=== PATIENT | female | born 1965 | race Caucasian/White ===

== ENCOUNTER 2018-09-18 10:34 | Emergency (ER) | payer BC ==
[~2018-09-18] VITALS: Ht 152.4 cm; Wt 58.7 kg
[~2018-09-18 10:34] MED LIST: GLYB5TAB3 PO; METF-849 PO; PIOG15TA12 PO
[2018-09-18 10:39] VITALS: BP 150/83; PULSE 83; RESP 17; Ht 152.4 cm; Wt 58.7 kg
--- NOTE | 2018-09-18 11:16 | ERD ---
ER Documentation Chief Complaint Chief Complaint bit by "something" on R. ankle x 2 months ago HPI 53-year-old female presents for a wound check for a healing wound on her right ankle that she has had for about 2 months. She thinks at that time she may have been bit by something. She is been putting triamcinolone cream and mupirocin without any relief. No fever. No bleeding or drainage from the site. ROS All systems reviewed and are negative except as per history of present illness. Medications Home Meds Reported Medications Pioglitazone Hcl* (Actos*) 15 Mg Tablet, 15 MG PO DAILY 09/22/11 Glyburide* (Glyburide*) 5 Mg Tablet, 5 MG PO DAILY 09/22/11 Metformin* (Glucophage*) 500 Mg Tab, 500 MG PO BID 09/22/11 Allergies Allergies: Coded Allergies: No Known Allergy (Unverified , 09/22/11) PMhx/Soc History of Surgery: Yes (CSECTION) Anesthesia Reaction: No Hx Neurological Disorder: No Hx Respiratory Disorders: No Hx Cardiac Disorders: No Hx Psychiatric Problems: No Hx Miscellaneous Medical Probl: No Hx Alcohol Use: No Hx Substance Use: No Hx Tobacco Use: No FmHx Family History: No diabetes Physical Exam Vitals Vital Signs Date Temp Pulse Resp B/P (MAP) Pulse Ox O2 O2 Flow FiO2 Time Delivery Rate 09/18/18 98.2 83 17 150/83 99 10:39 (105) Physical Exam Const: No acute distress Head: Atraumatic Eyes: Normal Conjunctiva ENT: Normal External Ears, Nose and Mouth. Neck: Full range of motion. No meningismus. Resp: Clear to auscultation bilaterally Cardio: Regular rate and rhythm, no murmurs Skin: Right ankle has small healing wound about 1 cm diameter, no surrounding erythema or edema, no bleeding or drainage Procedures/MDM Patient has small wound that is healing appropriately. No evidence of infection. She can continue to put the mupirocin and triamcinolone as needed. Patient counseled regarding my diagnostic impression and care plan. Prior to discharge all questions answered. Pt agrees with treatment plan and understands strict return precautions. Pt is instructed to follow up with primary care provider within 24-48 hours. Precautionary instructions provided including instructions to return to the ER if not improving or for any worsening or changing symptoms or concerns. Departure Diagnosis: Primary Impression: Visit for wound check Condition: Stable Patient Instructions: Wound Care Additional Instructions: Llame al doctor MAANA y mary kyra AMISHA PARA DENTRO DE 1-2 GARCAI.Dgale a la secretaria que nosotros le instruimos hacer esta amisha.Avise o llame si zurita condicin se empeora antes de la amisha. Regresa aqui si peor o no mejor. MIRANDA LAURA PA-C Sep 18, 2018 11:16
== END 2018-09-18 12:06 | disposition home or self-care (01) ==
LOC: FTE 10:34
DX: Z48.01 Encounter for change or removal of surgical wound dressing (principal)
CPT/HCPCS: 99281